=== PATIENT | male | born 2000 | race Caucasian/White ===

== ENCOUNTER 2023-05-08 17:08 | Observation (INO) ==
--- NOTE | 2023-05-08 17:23 | DR.SEIZA ---
HPI Time Seen Time Seen by Provider: 05/08/23 17:23 Complaints Chief Complaint Doctors Comments: Patient had a witnessed seizure at 13:00 generalized. Patient OD in 2016 had a seizure at that time and was prescribed seizure medication.Farshad has not been taking seizure medication.He admits to recreational drug use: methamphetamine /cocaine/marijuana/2 klonopin today. Patient c/o bitemporal headache and states that today he had a syncopal episode before he had the seizure.Patient has weakness in his bilateral lower extremities. Patient denies:chest pain,n,v,abdl pain,extremity numbness, PMH PMH Past Surgical History: Yes Surgical History: Tonsillectomy Family History Family Medical History: Diabetes Mellitus, Heart Failure and Hypertension Social History Do you use any recreational Drugs:: No ROS Review of Systems Constitutional: No Symptoms Reported Eyes: No Symptoms Reported ENTM: No Symptoms Reported Respiratoy: No Symptoms Reported Cardiovascular: Syncope; negative Chest Pain Gastrointestinal/Abdominal: No Symptoms Reported; negative Nausea or Vomiting Genitourinary: No Symptoms Reported Neurological: No Symptoms Reported and Seizure (generalized); negative Headache Musculoskeletal: No Symptoms Reported Integumentary: No Symptoms Reported Hematologic/Lymphatic: No Symptoms Reported Endocrine: No Symptoms Reported Psychiatric: No Symptoms Reported All Other Systems: Reviewed and Negative PE Vital Signs Vitals: Vital Signs Temperature 97.9 F Pulse Rate 63 Pulse Rate 64 Pulse Rate 86 Pulse Rate 69 Pulse Rate 70 Pulse Rate 77 Pulse Rate 78 Pulse Rate 81 Pulse Rate 86 Pulse Rate 105 Pulse Rate 103 Pulse Rate 96 Respiratory Rate 18 Respiratory Rate 18 Respiratory Rate 18 Respiratory Rate 18 Respiratory Rate 17 Respiratory Rate 19 Respiratory Rate 18 Respiratory Rate 21 Respiratory Rate 19 Respiratory Rate 17 Blood Pressure 117/60 Blood Pressure 127/82 Blood Pressure 120/63 Blood Pressure 111/59 Blood Pressure 111/55 Blood Pressure 111/57 Blood Pressure 112/59 Blood Pressure 127/60 Blood Pressure 126/78 Blood Pressure 136/80 O2 Sat by Pulse Oximetry 97 O2 Sat by Pulse Oximetry 96 O2 Sat by Pulse Oximetry 100 O2 Sat by Pulse Oximetry 100 O2 Sat by Pulse Oximetry 98 O2 Sat by Pulse Oximetry 98 General Limitations: No Limitations General Appearance: Alert and In No Apparent Distress Head Head Exam: Normal Inspection Eyes Eye exam: Normal Appearance Eyelids: Normal Inspection: Bilateral Pupils: Regular, Round: Bilateral Sclera/Conjunctival: Normal Inspection: Bilateral Anterior Chamber: Normal Inspection: Bilateral ENT ENT Exam: Normal Exam Mouth Exam: Normal Inspection Neck Neck Exam: Normal Inspection Chest Chest Inspection: Normal Inspection Respiratory Respiratory Exam: Normal Lung Sounds Bilat Respiratory Exam: Bilateral: Clear to Auscultation Cardiovascular Cardiovascular Exam: Regular Rate and Normal Rhythm Abdominal Exam Abdominal Exam: Normal Inspection, Normal Bowel Sounds and Soft Extremities Extremities Exam: Normal Inspection Back Back Exam: Normal Inspection Neurologic Neurological Exam: Alert and Oriented X3 Psychiatric Psychiatric Exam: Normal Affect and Normal Mood Skin Skin Exam: Warm, Dry, Intact and Normal Color MDM Differential Diagnosis Seizure due to:: Alcohol Withdrawal, Closed Head Injury, CVA/TIA and Drug Ingestion Differential Diagnosis Comment: electrolyte abnormality,hemorrhage COURSE Treatment Treatment: Patient was brought to a monirored room.IV access was initiated and patient was given Keppra iv loading dose 1500mg iv. Patient was also given NS 1liter x 2 boluses. Patient did not have recurrent seizure activity in the Ed.Patient's CXR is nml,Brain CT w/o contrast did not reveal an acute process. CMP: glucose 87/BUN 21/creat 1.03.Blood alcohol neg/Salicylate neg/Acetaminophen Neg.UDS pos for : Methamphetamone/cocaine/Marijuana/Benzodiazepines. 20:[address] Boone. He will admit the patient for observation to [facility]. Patient's mother was informed of plan. Patient has been stable in the ED. ROR Labs Reviewed Laboratory Results Reviewed?: Yes Result Diagrams: 05/08/23 17:38 05/08/23 17:38 Laboratory: WBC 11.5 X10^3/uL (3.6-10.0) H 05/08/23 17:38 RBC 4.84 X10^6/uL (4.7-6.0) 05/08/23 17:38 Hgb 15.4 g/dL (13.5-18.0) 05/08/23 17:38 Hct 44.4 % (42.0-54.0) 05/08/23 17:38 MCV 91.9 fL (80.0-100.0) 05/08/23 17:38 MCH 31.8 pg (27.0-34.0) 05/08/23 17:38 MCHC 34.6 g/dL (33.0-35.0) 05/08/23 17:38 RDW 12.7 % (11.6-16.5) 05/08/23 17:38 Plt Count 226 X10^3/uL (150.0-450.0) 05/08/23 17:38 MPV 10.2 fL (7.4-11.0) 05/08/23 17:38 Neut % (Auto) 63.7 % (42.0-75.0) 05/08/23 17:38 Lymph % (Auto) 24.7 % (21.0-51.0) 05/08/23 17:38 [place] % (Auto) 9.9 % (0.0-13.0) 05/08/23 17:38 Eos % (Auto) 1.1 % (0.9-2.9) 05/08/23 17:38 Baso % (Auto) 0.6 % (0.2-1.0) 05/08/23 17:38 Neut # (Auto) 7.3 x10^3/uL (2.2-4.8) H 05/08/23 17:38 Lymph # (Auto) 2.8 X10^3/uL (1.3-2.9) 05/08/23 17:38 [place] # (Auto) 1.1 x10^3/uL (0.3-0.8) H 05/08/23 17:38 Eos # (Auto) 0.1 x10^3/uL (0.0-0.2) 05/08/23 17:38 Baso # (Auto) 0.1 X10^3/uL (0.0-0.1) 05/08/23 17:38 Absolute Nucleated RBC 0.1 /100WBC 05/08/23 17:38 D-Dimer 0.31 ug/ml (0.0-0.57) 05/08/23 17:38 Sodium 140 mmol/L (136-145) 05/08/23 17:38 Corrected Sodium TNP 05/08/23 17:38 Potassium 3.5 mmol/L (3.5-5.1) 05/08/23 17:38 Chloride 101 mmol/L (98-107) 05/08/23 17:38 Carbon Dioxide 26.7 mmol/L (21-32) 05/08/23 17:38 BUN 21 mg/dL (7-18) H 05/08/23 17:38 Creatinine 1.03 mg/dL (0.70-1.30) 05/08/23 17:38 Est GFR (MDRD) Af Amer > 60 (>60) 05/08/23 17:38 Est GFR (MDRD) Non-Af > 60 (>60) 05/08/23 17:38 Glucose 87 mg/dL (65-99) 05/08/23 17:38 Calcium 8.8 mg/dL (8.5-10.1) 05/08/23 17:38 Corrected Calcium TNP 05/08/23 17:38 Magnesium 2.5 mg/dL (2.0-2.9) 05/08/23 17:38 Total Bilirubin 1.40 mg/dL (0.2-1.0) H 05/08/23 17:38 AST 24 Units/L (15-37) 05/08/23 17:38 ALT 31 Units/L (12-78) 05/08/23 17:38 Alkaline Phosphatase 92 Units/L (46-116) 05/08/23 17:38 B-Natriuretic Peptide < 5.0 pg/mL (0-79) 05/08/23 17:38 Total Protein 8.0 g/dL (6.4-8.2) 05/08/23 17:38 Albumin 4.9 g/dL (3.4-5.0) 05/08/23 17:38 Globulin 3.1 g/dL (2.5-4.5) 05/08/23 17:38 Albumin/Globulin Ratio 1.6 Ratio (1.1-2.1) 05/08/23 17:38 Amylase 27 Units/L (25-115) 05/08/23 17:38 Lipase 57 Units/L (73-393) L 05/08/23 17:38 Salicylates < 2.8 mg/dL (2.8-20) L 05/08/23 17:38 Urine Opiates Screen Negative (NEG=<300) 05/08/23 20:01 Urine Methadone Screen Negative (NEG=<300) 05/08/23 20:01 Acetaminophen 0.0 ug/mL (10-30) L 05/08/23 17:38 Ur Barbiturates Screen Negative (NEG=<200) 05/08/23 20:01 Ur Phencyclidine Scrn Negative (NEG=<25) 05/08/23 20:01 Ur Amphetamines Screen Positive (NEG=<1000) 05/08/23 20:01 U Benzodiazepines Scrn Positive (NEG=<200) 05/08/23 20:01 Urine Cocaine Screen Positive (NEG=<300) 05/08/23 20:01 U Marijuana (THC) Screen Positive (NEG=<50) A 05/08/23 20:01 Ethyl Alcohol mg/dL < 3 mg/dL (0-19.9) 05/08/23 17:38 XRAY XRAY Interpreted by: Radiologist X-ray Results: HISTORY History of urinary retention, left kidney mass and bowel ischemia/perforation. STUDY ABDOMEN/PELVIS WITH CON COMPARISON None TECHNIQUE Axial CT images of the abdomen and pelvis were obtained after the administration of IV contrast, 75 mL Omnipaque 350, and reformatted into coronal and sagittal planes for further evaluation. Radiation dose: 215.12 mGy-cm total DLP FINDINGS Lung bases are clear. Stomach appears normal. Solid visceral organs of the upper abdomen are unremarkable. Gallbladder appears normal with no biliary dilatation. Homogeneous enhancement of the kidneys without hydronephrosis or hydroureter. Incidental left peripelvic cysts. Rivera catheter in the decompressed urinary bladder. Imaged reproductive structures are unremarkable. Unremarkable appearance of the large and small bowel. No evidence of acute appendicitis. No pneumoperitoneum. No significant fluid collection. No adenopathy. No acute osseous abnormality. IMPRESSION No acute intra-abdominal abnormality detected. Electronically signed by: Suraj Ferris (May 08, 2023 19:08:12) HISTORY seizure episode,syncope,lk for bleed,fx STUDY BRAIN W/O CON COMPARISON None TECHNIQUE Multiple axial images of the head without contrast. Dose reduction techniques including Automated Exposure Control (AEC) and adjustment of mA and kV were utilized. Contrast: None FINDINGS BRAIN PARENCHYMA: No acute hemorrhage, infarct, mass, or mass effect. Rivers-white differentiation is maintained. VENTRICLES/EXTRA-AXIAL SPACES: Normal size and configuration. No hydrocephalus or extra-axial fluid collections. EXTRACRANIAL STRUCTURES:Unremarkable bones and soft tissues. Visualized paranasal sinuses and mastoids are clear. IMPRESSION Unremarkable CT head. Electronically signed by: Lou Doshi (May 08, 2023 18:14:49) Opioid Opioid Risk Tool Total: 0 Total Score Risk Category: Low Risk Copyright: Ward ROGER predicting aberrant behaviors Discharge Plan Diagnosis Discharge Problem: Seizure disorder, Polysubstance abuse, Dehydration Discharge Plan Patient Disposition: ADMITTED INPATIENT Condition: Stable Prescriptions: No Action [facility] Concerns: Post Hospitalization: new medications and changes needed to prevent readmission or further decline. Pt educated and given instructions on all concerns. Plan of Treatment: Continue with present treatment and follow up plan. Pt is to keep follow up appointment as instructed and take medications as ordered. Orders to Discharge Patient Discharge Orders: Transfer (Routine); Ordered 05/08/23 Ordered By: Briseyda Hernandez Follow ups/Referrals Follow ups/Referrals: CHANI BARRON [Primary Care Provider] - 3 days Instructions Stand Alone Forms: Post Hospital Follow Up Care
[2023-05-08] MEDS ORDERED: NS 1,000 ML IV 1,000 ML ONE ×2 (17:32→19:16)
[2023-05-08] MEDS ORDERED: KEPPRA INJ 1,500 MG in NS 100 ML IV 100 ML IV ONE (17:38)
[2023-05-08] MEDS ORDERED: NS 100 ML IV 100 ML ONE (17:52)
[2023-05-08 18:05] LABS: BASOPHILS # (AUTO) 0.1 X10^3/uL (0.0-0.1); EOSINOPHILS # (AUTO) 0.1 x10^3/uL (0.0-0.2); HEMATOCRIT 44.4 % (42.0-54.0); LYMPHOCYTES # (AUTO) 2.8 X10^3/uL (1.3-2.9); MEAN PLATELET VOLUME 10.2 fL (7.4-11.0); RED BLOOD COUNT 4.84 X10^6/uL (4.7-6.0)
[2023-05-08] MEDS ORDERED: NS 1,000 ML IV 1,000 ML IV ONE ×2 (18:09→19:12)
[2023-05-08 18:12] LABS: BASOPHILS % (AUTO) 0.6 % (0.2-1.0); EOSINOPHILS % (AUTO) 1.1 % (0.9-2.9); HEMOGLOBIN 15.4 g/dL (13.5-18.0); LYMPHOCYTES % (AUTO) 24.7 % (21.0-51.0); MEAN CORPUSCULAR HEMOGLOBIN 31.8 pg (27.0-34.0); MEAN CORPUSCULAR HGB CONC 34.6 g/dL (33.0-35.0); MEAN CORPUSCULAR VOLUME 91.9 fL (80.0-100.0); MONOCYTES # (AUTO) 1.1 x10^3/uL (0.3-0.8); MONOCYTES % (AUTO) 9.9 % (0.0-13.0); NEUTROPHILS # (AUTO) 7.3 x10^3/uL (2.2-4.8); NEUTROPHILS % (AUTO) 63.7 % (42.0-75.0); PLATELET COUNT 226 X10^3/uL (150.0-450.0); RED CELL DISTRIBUTION WIDTH 12.7 % (11.6-16.5); WHITE BLOOD COUNT 11.5 X10^3/uL (3.6-10.0)
--- NOTE | 2023-05-08 18:15 | CT ---
HISTORYseizure episode,syncope,lk for bleed,fxSTUDYBRAIN W/O CONCOMPARISONNoneTECHNIQUEMult iple axial images of the head without contrast. Dose reduction techniques including Automated Exposure Control (AEC) and adjustment of mA and kV were utilized.Contrast: NoneFINDINGSBRAIN PARENCHYMA: No acute hemorrhage, infarct, mass, or mass effect.Rivers-white differentiation is maintained.VENTRICLES/EXTRA-AXIAL SPACES: Normal size and configuration. No hydrocephalus or extra-axial fluid collections.EXTRACRANIAL STRUCTURES:Unremarkable bones and soft tissues. Visualized paranasal sinuses and mastoids are clear.IMPRESSIONUnremarkable CT head.Electronically signed by: Lou Doshi (May 08, 2023 18:14:49)
[2023-05-08 18:21] LABS: ALANINE AMINOTRANSFERASE 31 Units/L (12-78); ALBUMIN 4.9 g/dL (3.4-5.0); ALKALINE PHOSPHATASE 92 Units/L (46-116); AMYLASE 27 Units/L (25-115); ASPARTATE AMINO TRANSFERASE 24 Units/L (15-37); BLOOD ALCOHOL < 3 mg/dL (0-19.9); BLOOD UREA NITROGEN 21 mg/dL (7-18); CALCIUM 8.8 mg/dL (8.5-10.1); CARBON DIOXIDE 26.7 mmol/L (21-32); CHLORIDE 101 mmol/L (98-107); CREATININE 1.03 mg/dL (0.70-1.30); GLUCOSE 87 mg/dL (65-99); LIPASE 57 Units/L (73-393); MAGNESIUM 2.5 mg/dL (2.0-2.9); POTASSIUM 3.5 mmol/L (3.5-5.1); SODIUM 140 mmol/L (136-145); eGFR NON BLACK RACES > 60 (>60)
--- NOTE | 2023-05-08 18:25 | RAD ---
HISTORYlk for aspiration pneumoniaSTUDYCHEST, 1 VIEWCOMPARISONNone.TECHNIQUEA single frontal view of the chest was obtained.FINDINGSThere are multiple EKG leads and wires seen overlying the patient. There is mild cardiomegaly with left ventricular hypertrophy noted. There is no focal infiltrate. There is no effusion. There is no pneumothorax. The osseous structures are intact.IMPRESSIONNo focal infiltrate or effusion.Electronically signed by: Lou Doshi (May 08, 2023 18:24:45)
[2023-05-08 18:30] LABS: SALICYLATE < 2.8 mg/dL (2.8-20)
[2023-05-08] MEDS: NS 1,000 ML IV 1,000 ML IV SCH (21:50)
[2023-05-08 22:17] VITALS: BMI 26.3
--- NOTE | 2023-05-09 00:07 | EKG ---
Test Reason : bradycardia Blood Pressure : */* mmHG Vent. Rate : 52 BPM Atrial Rate : 52 BPM P-R Int : 204 ms QRS Dur : 104 ms QT Int : 490 ms P-R-T Axes : 11 56 35 degrees QTc Int : 455 ms Sinus bradycardia with sinus arrhythmia Otherwise normal ECG No previous ECGs available Confirmed by Jose M Castillo ([id number]) on 05/09/2023 8:17:11 AM Referred By: Confirmed By: Jose M Castillo
[2023-05-09 05:12] LABS: BASOPHILS # (AUTO) 0.1 X10^3/uL (0.0-0.1); BASOPHILS % (AUTO) 0.8 % (0.2-1.0); EOSINOPHILS # (AUTO) 0.2 x10^3/uL (0.0-0.2); EOSINOPHILS % (AUTO) 3.1 % (0.9-2.9); HEMATOCRIT 38.6 % (42.0-54.0); HEMOGLOBIN 13.5 g/dL (13.5-18.0); LYMPHOCYTES # (AUTO) 2.6 X10^3/uL (1.3-2.9); LYMPHOCYTES % (AUTO) 37.5 % (21.0-51.0); MEAN CORPUSCULAR HEMOGLOBIN 32.3 pg (27.0-34.0); MEAN CORPUSCULAR HGB CONC 34.9 g/dL (33.0-35.0); MEAN CORPUSCULAR VOLUME 92.5 fL (80.0-100.0); MEAN PLATELET VOLUME 10.2 fL (7.4-11.0); MONOCYTES # (AUTO) 0.8 x10^3/uL (0.3-0.8); MONOCYTES % (AUTO) 11.8 % (0.0-13.0); NEUTROPHILS # (AUTO) 3.3 x10^3/uL (2.2-4.8); NEUTROPHILS % (AUTO) 46.8 % (42.0-75.0); PLATELET COUNT 182 X10^3/uL (150.0-450.0); RED BLOOD COUNT 4.18 X10^6/uL (4.7-6.0); RED CELL DISTRIBUTION WIDTH 12.8 % (11.6-16.5)
[2023-05-09 05:22] LABS: ALANINE AMINOTRANSFERASE 22 Units/L (12-78); ALBUMIN 3.4 g/dL (3.4-5.0); ALKALINE PHOSPHATASE 68 Units/L (46-116); ASPARTATE AMINO TRANSFERASE 18 Units/L (15-37); BLOOD UREA NITROGEN 16 mg/dL (7-18); CALCIUM 7.5 mg/dL (8.5-10.1); CARBON DIOXIDE 27.8 mmol/L (21-32); CHLORIDE 107 mmol/L (98-107); CREATININE 0.79 mg/dL (0.70-1.30); GLUCOSE 75 mg/dL (65-99); POTASSIUM 3.6 mmol/L (3.5-5.1); SODIUM 141 mmol/L (136-145); eGFR NON BLACK RACES > 60 (>60)
[2023-05-09] MEDS ORDERED: CONSULT PHARMACY - POTASSIUM & MAGNESIUM XX SCH (06:00)
[2023-05-09] MEDS ORDERED: K-DUR TAB 20 MEQ PO SCH (09:00)
[2023-05-09] MEDS: NS 1,000 ML IV 1,000 ML IV SCH (10:50)
--- NOTE | 2023-05-09 13:27 | EKG ---
Test Reason : seizure Blood Pressure : */* mmHG Vent. Rate : 53 BPM Atrial Rate : 53 BPM P-R Int : 178 ms QRS Dur : 100 ms QT Int : 464 ms P-R-T Axes : 24 68 43 degrees QTc Int : 435 ms Sinus bradycardia with marked sinus arrhythmia Otherwise normal ECG When compared with ECG of 08-MAY-2023 23:56, No significant change was found Confirmed by Jose M Castillo ([id number]) on 05/10/2023 7:56:32 AM Referred By: Confirmed By: Jose M Castillo
[2023-05-09 15:40] VITALS: TEMP 97.4
--- NOTE | 2023-05-09 17:55 | DR.H&P ---
H&P - History & Physical for Day of: H&P Date: 05/08/23 - Chief Complaint Chief Complaint: "seizure activity" - History of Present Illness History of Present Illness: PT IS 23 WM, ER ADMISSION WITH REPORTS OF SEIZURE LIKE ACTIVITY, WITNESSED EPISODE. PTS HX OF SEIZURE LIKE EPISODE IN 2016 WITH AN OD. PT DENIES ANY DX OF SEIZURE DISORDER OR ALF MED USE FOR SEIZURE DISORDER. PT CO WEAKNESS IN BILATERAL LOWER EXTREMITIES. PT ADMITS TO ILLICIT DRUG USE. PT HAD CT HEAD ON ADMISSION IN ER, GIVEN IV KEPPRA AND IV HYDRATION. PT WAS ADMITTED TO ICU FOR OBSERVATION. - Past Medical History Additional Medical History: ONE REPORT OF SEIZURE LIKE ACTIVITY IN 2016 - Past Surgical History Surgical History: Tonsillectomy - Family History Family Medical History: Hypertension - Social History Does patient currently use any type of tobacco product: Yes Have you used tobacco products in the last 12 months: Yes Type of Tobacco Use: Cigarettes Alcohol Use: Occasionally Drug Use: Cocaine, Methamphetamine, Marijuana - Review of Systems Constitutional: Weakness Eyes: No Symptoms Reported ENT: No Symptoms Reported Respiratory: No Symptoms Reported Cardiovascular: No Symptoms Reported Gastrointestinal: No Symptoms Reported Genitourinary: No Symptoms Reported Musculoskeletal: No Symptoms Reported Skin: No Symptoms Reported Neurological: Weakness - Physical Exam Vital Signs: Vital Signs Temperature 97.4 F Pulse Rate 79 Pulse Rate 51 Pulse Rate 61 Pulse Rate 71 Pulse Rate 55 Pulse Rate 55 Pulse Rate 50 Pulse Rate 64 Pulse Rate 61 Pulse Rate 61 Pulse Rate 63 Pulse Rate 67 Pulse Rate 78 Pulse Rate 75 Pulse Rate 64 Pulse Rate 76 Pulse Rate 67 Pulse Rate 66 Pulse Rate 70 Pulse Rate 64 Pulse Rate 80 Pulse Rate 64 Pulse Rate 76 Pulse Rate 74 Pulse Rate 68 Pulse Rate 71 Pulse Rate 69 Pulse Rate 68 Respiratory Rate 33 Respiratory Rate 15 Respiratory Rate 18 Respiratory Rate 20 Respiratory Rate 15 Respiratory Rate 16 Respiratory Rate 15 Respiratory Rate 17 Respiratory Rate 16 Respiratory Rate 16 Respiratory Rate 16 Respiratory Rate 15 Respiratory Rate 17 Respiratory Rate 25 Respiratory Rate 24 Respiratory Rate 24 Respiratory Rate 19 Respiratory Rate 18 Respiratory Rate 19 Respiratory Rate 15 Respiratory Rate 23 Respiratory Rate 21 Respiratory Rate 21 Respiratory Rate 24 Respiratory Rate 36 Respiratory Rate 23 Respiratory Rate 21 Respiratory Rate 26 Blood Pressure 102/59 Blood Pressure 106/51 Blood Pressure 112/58 Blood Pressure 121/72 Blood Pressure 118/57 Blood Pressure 122/68 Blood Pressure 102/65 O2 Sat by Pulse Oximetry 97 O2 Sat by Pulse Oximetry 97 O2 Sat by Pulse Oximetry 97 O2 Sat by Pulse Oximetry 97 O2 Sat by Pulse Oximetry 98 O2 Sat by Pulse Oximetry 97 O2 Sat by Pulse Oximetry 99 O2 Sat by Pulse Oximetry 96 O2 Sat by Pulse Oximetry 96 O2 Sat by Pulse Oximetry 95 O2 Sat by Pulse Oximetry 95 O2 Sat by Pulse Oximetry 95 O2 Sat by Pulse Oximetry 98 O2 Sat by Pulse Oximetry 97 O2 Sat by Pulse Oximetry 98 O2 Sat by Pulse Oximetry 98 O2 Sat by Pulse Oximetry 98 O2 Sat by Pulse Oximetry 96 O2 Sat by Pulse Oximetry 96 O2 Sat by Pulse Oximetry 99 O2 Sat by Pulse Oximetry 98 O2 Sat by Pulse Oximetry 97 O2 Sat by Pulse Oximetry 98 O2 Sat by Pulse Oximetry 98 O2 Sat by Pulse Oximetry 98 O2 Sat by Pulse Oximetry 99 O2 Sat by Pulse Oximetry 99 O2 Sat by Pulse Oximetry 98 Oriented: Person Ear: Normal Nose: Normal Throat: Normal Respiratory: RLL Diminished, LLL Diminished Cardiovascular: Normal : Normal Auscultation: Bowel Sounds: Normal Palpation: Normal Tenderness: Normal Skin: Normal Musculoskeletal: Normal Mood Description: Flat Speech Pattern: Delayed - Assessment/Plan (1) Seizures Status: Acute Plan: CT HEAD IN ER ON ADMISSION. IV LOADING DOSE KEPPRA IN ER. IV HYDRATION, I &OS. UDS AND CXR ON ADMISSION. CARDIAC MONITORING, PRN SUPPLEMENTAL O2. SEIZURE PRECAUTIONS, VERIFY HOME MEDICATIONS (2) Polysubstance abuse Status: Acute (3) Dehydration Status: Acute - Allergies Allergies/Adverse Reactions: Allergies Allergy/AdvReac Type Severity Reaction Status Date / Time No Known Allergies Allergy Verified 05/08/23 18:11 - Medications Home Medications: Home Medications Medication Instructions Recorded Confirmed NK 05/08/23 05/08/23
[2023-05-09 18:13] VITALS: BP 94/52; PULSE 61; RESP 16; O2SAT 96
== END 2023-05-09 18:35 | disposition home or self-care (01) ==
LOC: ER 17:08 → ICU 17:08
PROVIDERS: ADMIT Family Medicine; ATTEND Internal Medicine